=== PATIENT | male | born 1960 | race Caucasian/White ===

== ENCOUNTER 2019-02-24 10:44 | Emergency (ER) | payer SELFPAY ==
[2019-02-24] MEDS: FENTAnyl 50 MCG/ML VIAL IV (11:51)
[2019-02-24] MEDS: DIPHTH/TET/ACEL PERTUSS (ADULT) 0.5 ML VIAL IM* (11:52)
[2019-02-24] MEDS: LIDOCAINE 1% (MDV) 20 ML INJ SC (11:52)
[2019-02-24] MEDS: BACITRACIN/POLYMYXIN 28.35 GM OINT TOP (13:58)
== END 2019-02-24 14:33 | disposition home or self-care (01) ==
LOC: E/R 10:44
DX: S60.352A Superficial foreign body of left thumb, initial encounter (principal); W29.4XXA Contact with nail gun, initial encounter; Y92.9 Unspecified place or not applicable; Z23 Encounter for immunization; Z87.891 Personal history of nicotine dependence
CPT/HCPCS: 10120; 73130-LT; 90471; 90715; 96374; 99284-25